=== PATIENT | male | born 1990 | race Two or more races ===

== ENCOUNTER 2018-04-12 12:55 | Emergency (ER) | payer OTHER ==
[~2018-04-12] VITALS: Ht 177.8 cm; Wt 90.7 kg
[2018-04-12 13:38] VITALS: BP 135/192
[2018-04-12] MEDS: HYDROcodone-ACET 10/325MG TAB PO ONE (13:42)
== END 2018-04-12 15:30 | disposition home or self-care (01) ==
LOC: ER 12:55 → EDBD 12:55 → ER 15:28
DX: S86.912A Strain of unspecified muscle(s) and tendon(s) at lower leg level, left leg, initial encounter (principal); S76.012A Strain of muscle, fascia and tendon of left hip, initial encounter; R51 Headache; V43.52XA Car driver injured in collision with other type car in traffic accident, initial encounter; Y93.89 Activity, other specified; Y92.488 Other paved roadways as the place of occurrence of the external cause; Y99.8 Other external cause status
CPT/HCPCS: 72170; 73562